=== PATIENT | female | born 1955 | race Caucasian/White ===

== ENCOUNTER 2020-11-01 10:06 | Day surgery (SDC) | payer BC ==
[~2020-11-01 10:06] MED LIST: Acetaminophen 325 MG Tab PO SCH; Lactated Ringers 1,000 ML IV SCH; Lidocaine 1%/Sod Bicarbonate in NS 8.4% 1 ML Syringe IDERM PRN; Pregabalin 25 MG Cap PO SCH; Sodium Chloride 0.9% 10 ML Syringe FLUSH PRN; oxyCODONE ER 10 MG TAB.ER PO SCH
--- NOTE | 2020-11-01 12:09 | PCM.PREANE ---
Preanesthetic Assessment - Procedure Proposed Procedure: right total knee arthroplasty - Anesthesia/Transfusion/Family Hx Anesthesia History: Prior Anesthesia Without Reaction Family History of Anesthesia Reaction: No Transfusion History: No Prior Transfusion(s) - Review of Systems General: No Symptoms Pulmonary: No Symptoms Cardiovascular: Dyspnea on Exertion Gastrointestinal: No Symptoms Neurological: No Symptoms Other: Reports: None - Physical Assessment NPO Status Date: 10/31/20 NPO Status Time: 00:00 Height: 1.57 m Weight: 105.2 kg ASA Class: 3 Mental Status: Alert & Oriented x3 Airway Class: Mallampati = 2 Dentition: Reports: Missing Tooth/Teeth, Caries Thyro-Mental Finger Breadths: 2 Mouth Opening Finger Breadths: 2 ROM/Head Extension: Full Lungs: Clear to Auscultation, Normal Respiratory Effort Cardiovascular: Regular Rate, Regular Rhythm, Murmurs - Allergies Allergies/Adverse Reactions: Allergies Allergy/AdvReac Type Severity Reaction Status Date / Time basil Allergy Other Verified 11/01/20 10:45 - Anesthesia Plan Pre-Op Medication Ordered: Beta Brett Beta Brett: Metoprolol Med Last Dose Date: 11/01/20 Med Last Dose Time: 08:00 - Acknowledgements Anesthesia Type Planned: Spinal Pt an Appropriate Candidate for the Planned Anesthesia: Yes Alternatives and Risks of Anesthesia Discussed w Pt/Guardian: Yes Pt/Guardian Understands and Agrees with Anesthesia Plan: Yes PreAnesthesia Questionnaire Cardiovascular History: Reports: High Cholesterol, Hypertension RIVET THROWER History: Reports: Musculoskeletal History: Reports: Arthritis - Past Surgical History HEENT Surgical History: Reports: Oral Surgery Female Surgical History: Reports: Section Musculoskeletal Surgical History: Reports: Carpal Tunnel - SUBSTANCE USE Tobacco Use Status *Q: Never Tobacco User Tobacco Use Within Last Twelve Months: No Second Hand Smoke Exposure: No Days Per Week of Alcohol Use: 1 Number of Drinks Per Day: 2 Total Drinks Per Week: 2 Recreational Drug Use History: No - HOME MEDS Home Medications: Home Meds Acetaminophen [Tylenol] 2 tab PO BID 10/31/20 [History] Aspirin [Aspirin EC] 325 mg PO BID #84 tab 10/31/20 [Rx] Calcium Carb/Mag Ox/Zinc Sulf [Jcw-Kmq-Tkgc 334-134-5 mg Tab] 1 tab PO DAILY 10/31/20 [History] Cholecalciferol (Vitamin D3) [Vitamin D3] 1 cap PO DAILY 10/31/20 [History] Cyclobenzaprine [Flexeril] 10 mg PO BID PRN #20 tab 10/31/20 [Rx] Magnesium Oxide [Magnesium] 1 cap PO DAILY 10/31/20 [History] Metoprolol Succinate 100 mg PO DAILY 10/31/20 [History] Multivit-Min/Folic Acid/Vit K1 [Multi For Her 50 Plus Softgel] 1 cap PO DAILY 10/31/20 [History] Potassium Gluconate [Potassium] 1 tab PO DAILY 10/31/20 [History] Vitamin B Complex 1 cap PO DAILY 10/31/20 [History] hydroCHLOROthiazide [Hydrochlorothiazide] 25 mg PO DAILY 10/31/20 [History] oxyCODONE 5 - 10 mg PO Q4H PRN #40 tab 10/31/20 [Rx] - CURRENT (IN HOUSE) MEDS Current Meds: Current Medications Acetaminophen (Acetaminophen 325 Mg Tab) 975 mg PO ONETIME ERICK Stop: 11/01/20 16:00 Last Admin: 11/01/20 10:24 Dose: 975 mg Documented by: Morphine Sulfate 8 mg/Epinephrine HCl 0.3 mg/Cefuroxime Sodium 750 mg/Ketorolac Tromethamine 30 mg/Sodium Chloride 7.9 ml 0 mg .XX ASDIRECTED PRN PRN Reason: Pain Stop: 11/01/20 18:00 Lactated Ringer's (Ringers, Lactated) 1,000 mls @ 125 mls/hr IV ASDIRECTED ERICK Stop: 11/01/20 23:00 Last Admin: 11/01/20 10:33 Dose: 125 mls/hr Documented by: Lidocaine/Sodium Bicarbonate (Lidocaine 1%/Sod Bicarbonate In Ns 8.4% 1 Ml Syringe) 0.25 ml IDERM ONETIME PRN PRN Reason: Prior to IV Start Stop: 11/01/20 18:00 Oxycodone HCl (Oxycodone Er 10 Mg Tab.Er) 10 mg PO ONETIME ERICK Stop: 11/01/20 16:00 Last Admin: 11/01/20 10:26 Dose: 10 mg Documented by: Pregabalin (Pregabalin 25 Mg Cap) 50 mg PO ONETIME ERICK Stop: 11/01/20 16:00 Last Admin: 11/01/20 10:25 Dose: 50 mg Documented by: Sodium Chloride (Sodium Chloride 0.9% 10 Ml Syringe) 10 ml FLUSH ASDIRECTED PRN PRN Reason: Keep Vein Open Stop: 11/01/20 18:00 Discontinued Medications Tranexamic Acid (Tranexamic Acid 1,000 Mg/10 Ml Amp) Confirm Administered Dose 1,000 mg .ROUTE .STK-MED ONE Stop: 11/01/20 11:21 Vancomycin HCl (Vancomycin 1 Gm Sdv) Confirm Administered Dose 1 gm .ROUTE .STK- MED ONE Stop: 11/01/20 11:21
[2020-11-01] MEDS ORDERED: Lidocaine 1% 4 ML ONE (12:21)
[2020-11-01] MEDS ORDERED: Ondansetron 4 MG/2 ML SDV ONE (12:21)
[2020-11-01] MEDS ORDERED: Propofol 200 MG/20 ML SDV ONE ×3 (12:21→13:32)
[2020-11-01] MEDS ORDERED: Midazolam 1 MG/ML 2 ML SDV ONE (12:21)
[2020-11-01] MEDS ORDERED: Ketorolac 30 MG/ML SDV ONE (12:21)
[2020-11-01] MEDS ORDERED: fentaNYL 100 MCG/2 ML SDV ONE (12:21)
[2020-11-01] MEDS ORDERED: ceFAZolin 1 GM Vial ONE (12:22)
[2020-11-01] MEDS: Morphine 8 MG, EPINEPHrine 0.3 MG, Cefuroxime 750 MG, Ketorolac 30 MG, Sodium Chloride ... PRN ×10 (13:20→13:41)
[2020-11-01] MEDS: Vancomycin 1 GM SDV ONE ×2 (13:20→13:49)
[2020-11-01] MEDS ORDERED: Lactated Ringers 1,000 ML ONE (13:25)
[2020-11-01] MEDS ORDERED: fentaNYL 100 MCG/2 ML SDV IVPUSH PRN (14:22)
--- NOTE | 2020-11-01 14:23 | PCM.POSTAN ---
POST ANESTHESIA ASSESSMENT - MENTAL STATUS Mental Status: Alert, Oriented - VITAL SIGNS Vital Signs: Last Vital Signs Temp 36.8 C 11/01/20 10:00 Pulse 60 11/01/20 10:00 Resp 18 11/01/20 10:00 BP 153/58 H 11/01/20 10:00 Pulse Ox 96 11/01/20 10:00 - RESPIRATORY Respiratory Status: Respiratory Rate WNL, Airway Patent, O2 Saturation Stable - CARDIOVASCULAR CV Status: Pulse Rate WNL, Blood Pressure Stable - GASTROINTESTINAL GI Status: No Symptoms - PAIN Pain Score: 0 - POST OP HYDRATION Hydration Status: Adequate & Stable - OBSERVATIONS Free Text/Narrative:: NO ANESTHESIA COMPLICATIONS NOTED
[2020-11-01] MEDS ORDERED: EPINEPHrine 1 MG/ML SDV ONE (14:27)
[2020-11-01] MEDS ORDERED: Ropivacaine 0.5% 5 MG/ML 30 ML SDV ONE (14:27)
--- NOTE | 2020-11-01 14:52 | PCM.SN.2 ---
- Free Text/Narrative Note: Right selective femoral nerve block at the adductor canal for post-procedure pain control under US guidance requested by Dr. Morgan. Time Out: 143 Start: 1434 End: 1444 Chart reviewed. Consent signed. Questions answered. Appropriate monitors applied. Time out performed. Right mid-shaft femur identified with ultrasound, scanning medially of femur, the femoral artery in the adductor canal visualized, and the femoral nerve located laterally to the artery. The skin was prepped lateral to the ultrasound probe with chlorahexadine times two. The 21ga 4 insulated block needle was inserted under direct ultrasound guidance into the adductor canal. 30mL of 0.5% ropivacaine with 1:200,000 epinephrine was injected circumferentially around the nerve with intermittent negative aspiration noted. Patient tolerated the procedure well. Sterile technique noted along with sterile gloves, mask, and sterile probe cover. See picture on progress note and vital signs on nurses notes. Block completed in PACU. Jovany Hilton CRNA
--- NOTE | 2020-11-01 15:51 | CR ---
Right knee: AP and crosstable lateral views of the right knee were obtained. Comparison: Prior right knee CT study of 10/20/20. Knee prosthesis is seen. Components are aligned. Patellar prosthesis is also noted. Soft tissue air is seen. Underlying bony structures show no other acute finding. Impression: 1. Satisfactory postop radiographic appearance of recently placed right knee prostheses. Diagnostic code #2
[2020-11-01] MEDS ORDERED: Cyclobenzaprine 10 MG Tab PO PRN ×2 (16:33→18:48)
[2020-11-01] MEDS ORDERED: oxyCODONE 5 MG Tab PO PRN (16:34)
[2020-11-01] MEDS ORDERED: Ondansetron 4 MG/2 ML SDV IVPUSH PRN (18:50)
[2020-11-01] MEDS ORDERED: Acetaminophen 325 MG Tab PO PRN (18:56)
[2020-11-01] MEDS: oxyCODONE 5 MG Tab PO PRN (20:36)
[2020-11-02] MEDS: oxyCODONE 5 MG Tab PO PRN ×4 (01:43→11:42)
[2020-11-02] MEDS: Metoprolol Succinate 50 MG Tab.ER PO SCH ×2 (07:57→09:26)
[2020-11-02] MEDS: Hydrochlorothiazide 25 MG Tab PO SCH ×2 (07:57→09:25)
[2020-11-02] MEDS: Aspirin 325 MG Tab.EC PO SCH ×2 (07:58→09:25)
--- NOTE | 2020-11-02 08:02 | PCM48HPAN ---
Post Anesthesia Note - EVALUATION WITHIN 48HRS OF ANESTHETIC Vital Signs in Normal Range: Yes Patient Participated in Evaluation: No (per RN) Respiratory Function Stable: Yes Airway Patent: Yes Cardiovascular Function Stable: Yes Hydration Status Stable: Yes Pain Control Satisfactory: Yes Nausea and Vomiting Control Satisfactory: Yes Mental Status Recovered: Yes Vital Signs: Last Vital Signs Temp 36.8 C 11/02/20 04:00 Pulse 86 11/02/20 07:57 Resp 16 11/02/20 04:00 BP 117/56 L 11/02/20 07:57 Pulse Ox 92 L 11/02/20 04:00
[2020-11-02] MEDS ORDERED: Aspirin 325 MG Tab.EC PO SCH (18:49)
--- NOTE | 2020-11-14 13:54 | PCM.OPNOTE ---
- General Post-Op/Procedure Note Date of Surgery/Procedure: 11/01/20 Operative Procedure(s): right total knee arthroplasty with [employer] robot[employer] Pre Op Diagnosis: right knee osteoarthrosis Post-Op Diagnosis: Same Anesthesia Technique: Local, MAC, Spinal Primary Surgeon: Jh Morgan Anesthesia Provider: Jovany Hilton Community Health Counselor: Lisa Mark Community Health Counselor: Sarah Davis EBL in mLs: 100 Complications: None Condition: Good Free Text/Narrative:: 4 femur 3 tibia 9mm 32x10
--- NOTE | 2020-11-16 07:55 | OR ---
DATE OF OPERATION: 11/01/2020 SURGEON: Jh Morgan MD OPERATION PERFORMED: Right total knee arthroplasty with [employer] robot[employer]. PREOPERATIVE DIAGNOSIS: Right knee osteoarthrosis. POSTOPERATIVE DIAGNOSIS: Right knee osteoarthrosis. ANESTHESIA: Local MAC with spinal. ANESTHESIA PROVIDER: Jovany Hilton CRNA ASSISTANTS: Lisa Mark PA-C and Sarah Davis LPN ESTIMATED BLOOD LOSS: 100 mL. COMPLICATIONS: None. CONDITION: Stable. IMPLANTS: 1. Valerie size 4 press-fit CR femur. 2. Lucama size 3 press-fit tibial baseplate. 3. Valerie size 3, 9 mm CS polyethylene insert. 4. Valerie size 32 x 10 mm press-fit asymmetric patella. DESCRIPTION OF PROCEDURE: The patient was identified in the preoperative holding area. Proper site was marked and identified by surgeon. The patient was taken back to the operating theater, where after adequate anesthesia, the patient's right lower extremity had a nonsterile tourniquet applied, and was then sterilely prepped and draped in usual sterile fashion. OR time-out was performed. The patient received 2 g IV Ancef. At this time, right lower extremity had a leg harrison applied. Right lower extremity was exsanguinated. Tourniquet was insufflated to 250 mmHg. Standard anterior incision was made. Medial parapatellar arthrotomy was created. Deep fibers of the MCL were raised and anterior fat pad was resected. Attention was turned to the patella. Patella measured 24 and resected to a 14 for a 32 x 10 mm patella. Drill holes were then drilled and found to be adequate. Attention was turned to the femur. Two 4.0 Schanz pins were placed intra-incisionally in the femur. At this time, the Lucama micro robotic array for the femur was placed. This was then done on the tibia 3 fingerbreadths below the tibial tubercle. Checkpoints were placed on both the femur and the tibia. Hip center rotation was obtained. Medial and lateral malleoli were marked. Checkpoints were marked on both the femur and the tibia. At this time, 40 points were obtained off the femur and the tibia for the Lucama micro robotic plan. The patient's knee was brought into full extension. Varus/valgus stresses were applied, and in 90 degrees of flexion. At this time, 18 mm gaps were concentrically made in both flexion and extension. [employer] robot[employer] was brought in. Straight saw blade was then used for the tibial cut, the anterior cut, the anterior chamfer cut, and the posterior cut. Saw blade was then switched and the distal femoral and posterior chamfer cut were completed. Bony fragments were removed. Medial and lateral menisci were resected. Any posterior osteophytes removed. At this time, trial implants for size 3 base plate were placed as well as size 4 femur. 9 mm trial spacer was placed. The patient's knee was brought into full extension and flexion. She had full extension and flexion. No varus/valgus instability was noted. At this time, the femoral drill holes were drilled. Tibia stamped and drilled in the proper rotation. The size 3 tibia was then impacted in place. Size 4 femur was impacted [address]. The size 3, 9 mm CS polyethylene insert was impacted and placed, and a 32 x 10 mm press-fit patella was press-fit into place. Tourniquet was deflated. Bleeders were cauterized. 1 L pulse lavage irrigation with Ancef was irrigated through the knee along with 400 mL Irrisept irrigation. Topical tranexamic acid and vancomycin powder were applied. Periarticular injection was completed. #2 barbed suture was used for closure of the medial parapatellar arthrotomy after all checkpoints and pins were removed. 2-0 Vicryl and Stratafix were used subcutaneously, and Prineo was used for skin closure. The patient had a sterile soft dressing applied and was sent to the PACU in stable condition. CAITY /[id number]
== END 2020-11-02 11:45 | disposition home or self-care (01) ==
LOC: JD.SDS 10:06 → JD.ICU 10:07 → JD.SDS 11-02 11:45
PROVIDERS: ATTEND Orthopaedic Surgery
DX: M17.11 Unilateral primary osteoarthritis, right knee (principal); M25.761 Osteophyte, right knee; E78.5 Hyperlipidemia, unspecified; I10 Essential (primary) hypertension; E78.00 Pure hypercholesterolemia, unspecified; Z91.018 Allergy to other foods; Z79.82 Long term (current) use of aspirin; Z79.899 Other long term (current) drug therapy
CPT/HCPCS: 27447; 73560; 97110; 97116; 97161; A9270; C1713; C1776; J0171; J0690; J0697; J1885; J2250; J2270; J2405; J2704; J2795; J3010; J3370; J7120; 01402; 64450; 76942